=== PATIENT | female | born 1965 | race Two or more races ===

== ENCOUNTER 2023-04-06 09:41 | Emergency (ER) | payer OTHER, SELFPAY ==
[2023-04-06 09:47] VITALS: BP 145/89
--- NOTE | 2023-04-06 10:03 | ED.GENMED ---
History of Present Illness
<DEJAN Trammell - Last Filed: 04/06/23 17:27>
General
Chief Complaint: Dizziness
Source: patient
Exam Limitations: none
Time Seen by Provider: 04/06/23 09:53
Nursing documentation reviewed up to this point in time: agreed with
Travel History
Have you had any contact with someone who has COVID-19?: No
Do you have any symptoms of coronavirus? Fever > 100 degrees, chills, cough, shortness of breath, sore throat, loss of taste or smell, muscle aches, or headache?: No
History of Present Illness
History of Present Illness:
Patient is a 57-year-old female who presents to the ER for evaluation. Daughter at bedside assisting with history. Patient reports she has had dizziness off and on for the past week. She tells me when she closes her eyes she feels like she is
spinning. She denies any headache.
She recently saw her family doctor and had medications added and changed however the dizziness started prior to medications being switched. She denies any chest pain but has noticed that her left arm feels numb.
Review of Systems
<DEJAN Trammell - Last Filed: 04/06/23 17:27>
Review of Systems
Allergies reviewed?: Yes
Other source history: family
Constitutional: Reports no symptoms
Respiratory: Reports no symptoms
Cardiac: Reports no symptoms
ABD/GI: Reports no symptoms
Musculoskeletal: Reports no symptoms
Skin: Reports other
Neurological: Reports other (room spinning sensation )
Psychiatric: Reports no symptoms
Phy Exam
<DEJAN Trammell - Last Filed: 04/06/23 17:27>
General Physical Exam
General Presentation: no apparent distress
General age: appears stated age
General Skin: warm
General Habitus: normal
General Mental: alert
General Hydration: appears well hydrated
Eye Exam
Eye Exam: PERRL, EOMI and other (No nystagmus bilaterally)
Cardiovascular Exam
Cardiovascular Exam: regular rate/rhythm, no murmur and normal peripheral pulses
Pulmonary Exam
Pulmonary Exam: lungs clear and no respiratory distress
Neurological Exam
Neurological Exam: alert and oriented x3
NIH Stroke Score
Level of Consciousness: 0 - Alert
LOC questions: 0-Answers both correctly
LOC Commands: 0-Performs both correctly
Best Gaze: 0-Normal
Visual Cantrell: 0=Normal, no visual loss
Facial palsy: 0=Normal, symmetrical
Motor - Right Arm: 0=No drift 10 seconds
Motor - Left Arm: 0=No drift 10 seconds
Motor - Right Le-No drift 5 seconds
Motor - Left Le-No drift 5 seconds
Limb Ataxia: 0-Absent
Sensation: 0-Normal
Best Language: 0-No aphasia
Dysarthria: 0-Normal
Extinction and Inattention: 0-No abnormality
Total Score:: 0
[place] Coma Scale
Eye Opening: Spontaneous
Verbal Response: Oriented
Motor Response: Obeys Commands
GCS Total Score: 15
Cerebellar
Cerebellar Function: normal finger to nose
Musculoskeletal Exam
Musculoskeletal Exam: full ROM
Skin Exam
Skin Exam: normal color and warm/dry
Psychiatric Exam
Psychiatric Exam: normal mood/affect
<Octaviano Trejo MD - Last Filed: 04/06/23 13:10>
[place] Coma Scale
GCS Total Score: 15
Course
<DEJAN Trammell - Last Filed: 04/06/23 17:27>
Orders/Labs/Results
Orders:
Orders
04/06/23 09:50
Electrocardiogram (*1) Urgent
Reason for Study: Vertigo / Dizzy
EKG- Treatment ONCE
04/06/23 10:02
CT Head W/o Iv Contrast Urgent
Comment:
Reason For Exam: vertigo
04/06/23 10:03
Cardiac Monitoring- Treatment ONCE
IV Insert/Care/Rem.- Treatment PRN
04/06/23 10:15
Complete Blood Count/With Diff Urgent
Comprehensive Metabolic Panel Urgent
Troponin I Urgent
04/06/23 10:41
MRI Brain [MR Brain Without Contrast] Urgent
Comment:
Reason For Exam: vertigo /left arm numbness
OK for patient to be off Cardiac Monitoring for MRI: Yes
Recent pill cam endoscopy?: No
04/06/23 11:27
Acetaminophen [Tylenol] 650 mg PO NOW STA
04/06/23 11:28
Ondansetron Injectable [Zofran] 4 mg IV NOW STA
04/06/23 13:09
Meclizine [Antivert] 25 mg PO NOW STA
Abnormal Lab Results
04/06/23
10:15
WBC 4.2 L 10^3/uL
(4.8-10.8)
MCHC 32.9 L g/dL
(33.0-37.0)
Creatinine 0.5 L mg/dL
(0.6-1.0)
Glucose 109 H mg/dl
(70-99)
AST 58 H U/L
(14-36)
ALT 100 H U/L
(0-35)
04/06/23 10:15
04/06/23 10:15
Vital Signs
Initial and Last Documented VS:
Initial Vital Signs
Temp Pulse Resp BP Pulse Ox
97.5 F 81 16 145/89 100
04/06/23 09:47 04/06/23 09:47 04/06/23 09:47 04/06/23 09:47 04/06/23 09:47
Last Documented Vital Signs
Temp Pulse Resp BP Pulse Ox
97.5 F 87 19 126/84 97
04/06/23 09:47 04/06/23 14:15 04/06/23 14:15 04/06/23 14:00 04/06/23 14:15
Rn Gyn consulted with Physician
Rn Gyn consulted with physician?: Yes
Name of Physician Consulted: Neil
<Octaviano Trejo MD - Last Filed: 04/06/23 13:10>
Orders/Labs/Results
Orders:
Orders
04/06/23 09:50
Electrocardiogram (*1) Urgent
Reason for Study: Vertigo / Dizzy
EKG- Treatment ONCE
04/06/23 10:02
CT Head W/o Iv Contrast Urgent
Comment:
Reason For Exam: vertigo
04/06/23 10:03
Cardiac Monitoring- Treatment ONCE
IV Insert/Care/Rem.- Treatment PRN
04/06/23 10:15
Complete Blood Count/With Diff Urgent
Comprehensive Metabolic Panel Urgent
Troponin I Urgent
04/06/23 10:41
MRI Brain [MR Brain Without Contrast] Urgent
Comment:
Reason For Exam: vertigo /left arm numbness
OK for patient to be off Cardiac Monitoring for MRI: Yes
Recent pill cam endoscopy?: No
04/06/23 11:27
Acetaminophen [Tylenol] 650 mg PO NOW STA
04/06/23 11:28
Ondansetron Injectable [Zofran] 4 mg IV NOW STA
04/06/23 13:09
Meclizine [Antivert] 25 mg PO NOW STA
Abnormal Lab Results
04/06/23
10:15
WBC 4.2 L 10^3/uL
(4.8-10.8)
MCHC 32.9 L g/dL
(33.0-37.0)
Creatinine 0.5 L mg/dL
(0.6-1.0)
Glucose 109 H mg/dl
(70-99)
AST 58 H U/L
(14-36)
ALT 100 H U/L
(0-35)
04/06/23 10:15
04/06/23 10:15
Vital Signs
Initial and Last Documented VS:
Initial Vital Signs
Temp Pulse Resp BP Pulse Ox
97.5 F 81 16 145/89 100
04/06/23 09:47 04/06/23 09:47 04/06/23 09:47 04/06/23 09:47 04/06/23 09:47
Last Documented Vital Signs
Temp Pulse Resp BP Pulse Ox
97.5 F 87 19 126/84 97
04/06/23 09:47 04/06/23 14:15 04/06/23 14:15 04/06/23 14:00 04/06/23 14:15
<DEJAN Trammell - Last Filed: 04/06/23 17:27>
MDM/Problems Addressed
Differential Diagnosis Includes:
Not limited to vertigo, less likely stroke, vertebral dissection dissection
MDM/Problems Addressed:
Patient is a 57-year-old female who presented to the ER for evaluation of dizziness. She does describe this as room sensation. She does however complain of numbness to her left arm.
she does have a history of high blood pressure and does report medications were changed however symptoms started prior to medication change. Patient denies any headache recent trauma.
Patient presents awake alert no acute distress with a normal neurologic exam.
Patient with unremarkable CAT scan. Patient examined by ED physician. With patient complains of vertigo and left arm tingling MRI was ordered and negative for acute findings. Patient was given meclizine here and felt much better.
She is nontoxic appearing stable for discharge home will DC with meclizine close the patient PCP and neurology.
Chronic conditions affecting care:
htn
<DEJAN Trammell - Last Filed: 04/06/23 17:27>
*Radiology
Radiology exam reviewed: radiology read reviewed
*Pulse Oximetry
Patient hypoxic: no
*EKG
Interpreted by ED Provider?: Yes
Interpretation: normal
Heart Rate: 81
Rate: normal
Ischemia: no ischemia
*Critical Care Note
Total Time (30-74mins, 75-104mins- exclusive of procedures): Not Applicable
ED Attending Note
<DEJAN Trammell - Last Filed: 04/06/23 17:27>
-
Portions of this chart may have been created with voice recognition software.� Occasional wrong word or��sound alike� substitutions may have occurred due to the inherent limitations of voice recognition software.
<Octaviano Trejo MD - Last Filed: 04/06/23 13:10>
ED Attending Note
Patient seen and examined by attending physician: Yes
I performed the substantive portion of visit, reviewed & personally made and approve the management plan that is documented in note by myself or CASA.: Yes
ED Attending Note:
57-year-old female onset of dizziness this morning. Concerned with her blood pressure which was within the 160s over 90s. Some mild left posterior headache. Also complaining of some numbness to the left arm.
On exam patient is nontoxic in no distress.
No carotid bruits. Speech normal. Extraocular muscles intact. Cranial nerves II through XII intact. Classifier Tender normal. Strength normal.
Impression vertigo disequilibrium with some paresthesias to the left arm.
Do not feel this is a primary cardiac issue. Cardiac testing is negative. Neurologic exam is normal and light touch is intact clinically. However with disequilibrium and paresthesias, MRI was ordered which is unremarkable. Stable for discharge
to follow-up
Discharge Plan
Departure
Patient Disposition: Home (Routine Discharge)
Date of Disposition: 04/06/23
Time of Disposition: 14:20
Patient with high blood pressure during this ER visit?: Yes
Condition: Fair
Covid-19: Not Applicable
Discharge Problem:
Vertigo
Instructions: Vertigo (a Type of Dizziness) (DC)
Prescriptions:
New
meclizine 25 mg tablet
25 mg PO TID PRN (Reason: dizziness) Qty: 10 0RF
Referrals:
Daniel Hallman MD [Active] -
New [place] MD [Family Provider] -
Activity Restrictions/Additional Instructions:
Prescription for meclizine was sent to your pharmacy. Take as directed. Follow-up with family doctor in the next several days for reevaluation of your symptoms on reevaluation of your blood pressure. It is also recommend that you follow-up with
neurology. Call today to make an appointment. Return if any worsening of symptoms.
Interventions
Interventions:
*Risk Screen - Suicide Last Done: 04/06/23 10:18
*General Assessment Last Done: 04/06/23 09:47
*Neglect/Abuse Screening Last Done: 04/06/23 10:18
ED- Fall Risk Assessment Last Done: 04/06/23 10:18
*ED COVID-19 Vaccine History Last Done: 04/06/23 09:47
*Nursing Disposition Last Done: 04/06/23 14:45
ED- Neurological Assessment Last Done: 04/06/23 11:22
ED- Cardiac Assessment Last Done: 04/06/23 10:18
ED Swallowing Screen Last Done: 04/06/23 11:35
Discharge Date and Time
Discharge Date/Time: 04/06/23 14:45
[2023-04-06 10:10] VITALS: BP 138/93
[2023-04-06 10:32] LABS: % Basophils 1.2 % (0-2); % Eosinophils 2.2 % (0-6); % Immature Granulocytes 0.2 % (0-0.5); % Lymphocytes 37.4 % (20.5-51.1); % Monocytes 6.7 % (1.7-9.3); % Neutrophils 52.3 % (42.2-75.2); Absolute Basophils 0.1 10^3/uL (0-0.2); Absolute Eosinophils 0.1 10^3/uL (0-0.7); Absolute Lymphocytes 1.6 10^3/uL (1.2-3.4); Absolute Monocytes 0.3 10^3/uL (0.1-0.6); Absolute Neutrophils 2.2 10^3/uL (1.4-6.5); Hematocrit 40.4 % (37.0-47.0); Hemoglobin 13.3 g/dL (12.0-16.0); Mean Corp Hgb Conc. 32.9 g/dL (33.0-37.0); Mean Corpuscular Hgb 29.5 pg (27.0-31.0); Mean Corpuscular Volume 89.6 fL (81.0-99.0); Mean Platelet Volume 9.9 fL (7.4-10.4); Nucleated Red Blood Cells % 0 %; Platelet Count 248 10^3/uL (130-400); Red Blood Cell Count 4.51 10^6/uL (4.20-5.40); Red Cell Dist. Width 12.5 % (11.5-14.5); White Blood Cell Count 4.2 10^3/uL (4.8-10.8)
[2023-04-06 10:42] LABS: ALT (SGPT) 100 U/L (0-35); AST (SGOT) 58 U/L (14-36); Albumin 4.7 g/dl (3.5-5.0); Alkaline Phosphatase 77 U/L (38-126); Blood Urea Nitrogen 15 mg/dl (7-17); Calcium 9.7 mg/dl (8.4-10.2); Carbon Dioxide 30 mmol/L (22-30); Chloride 102 mmol/L (98-107); Glucose 109 mg/dl (70-99); Potassium 4.6 mmol/L (3.5-5.1); Sodium 138 mmol/L (135-145); Total Bilirubin 0.7 mg/dl (0.2-1.3); Total Protein 7.4 g/dl (6.3-8.2); eGFR > 60.00
[2023-04-06 10:53] LABS: Troponin I < 0.012 ng/ml
[2023-04-06 11:15] VITALS: BP 148/87
[2023-04-06] MEDS: TYLENOL 650 MG PO (11:40)
[2023-04-06] MEDS: ZOFRAN 4 MG IV (11:41)
[2023-04-06 12:53] VITALS: BP 134/90
[2023-04-06 13:00] VITALS: BP 136/90
[2023-04-06] MEDS: ANTIVERT 25 MG PO (13:23)
[2023-04-06 14:00] VITALS: BP 126/84
== END 2023-04-06 14:45 | disposition home or self-care (01) ==
LOC: EMR 09:41
PROVIDERS: Nurse Practitioner; EMERGENCY PHYSICIAN Emergency Medicine; FAMILY PHYSICIAN Internal Medicine
DX: R42 Dizziness and giddiness (principal)
CPT/HCPCS: 99284; 96374; 70450; 70551; 80053; 84484; 85025; 93005